=== PATIENT | female | born 2000 | race Caucasian/White ===

== ENCOUNTER 2021-12-21 10:20 | Observation (INO) ==
[2021-12-21] MEDS ORDERED: SODIUM CHLORIDE 0.9% 1000ML 1,000 ML IV SCH (10:34)
[2021-12-21] MEDS ORDERED: ONDANSETRON INJ 2 MG/ML 2 ML VIAL IV STA (10:46)
[2021-12-21] MEDS ORDERED: fentaNYL citrate 100 MCG/2 ML VIAL IV STA (10:46)
--- NOTE | 2021-12-21 10:47 | Emergency Department Note ---
History of Present Illness General Chief complaint: Abdominal Pain Stated complaint: ABDOMINAL PAIN Time Seen by Provider: 12/21/21 10:28 History of Present Illness Maximum Pain Intensity: 9 Patient is a 21-year-old female with past medical history significant for depression and anxiety who returns the emergency department for worsening right upper quadrant abdominal pain, nausea and vomiting since earlier this week. She was seen and evaluated in the emergency department on 12/19, found to have an elevated white count and cholelithiasis. Admission for surgical intervention was offered to the patient, but she reported that she could not stay due to childcare issues. She subsequently was scheduled for surgery with Dr. Ruvalcaba this coming Friday, 12/24. She had a call with preop testing yesterday. She states she woke with severe 9/10 pain this morning with hot flashes and vomiting. She now feels that she cannot wait until surgical intervention is planned for Friday. She was told to come back if she is getting worse. She has been taking the Augmentin as prescribed. Last menstrual period was 11/24. Home Medications Medication Instructions Recorded Confirmed Type amoxicillin 875 mg-potassium 1 tab PO BID 7 days #14 tabs 12/19/21 12/19/21 Rx clavulanate 125 mg tablet hydroxyzine pamoate 25 mg capsule 25 mg PO Q6 PRN Anxiety 12/19/21 12/19/21 History (Vistaril) lamotrigine 25 mg tablet (Lamictal) 50 mg PO HS 12/19/21 12/19/21 History quetiapine 50 mg tablet (Seroquel) 50 mg PO HS 12/19/21 12/19/21 History Allergies Allergy/AdvReac Type Severity Reaction Status Date / Time red dye Allergy Intermediate "pronounced Verified 12/19/21 12:09 red mack" Past Med/Surg History Medical History Anxiety Bipolar disorder Cholelithiasis Depression History of kidney stones History of miscarriage Recent/within last couple months Iron deficiency anemia Left ovarian cyst Migraine Post traumatic stress disorder Surgical History History of tooth extraction Family History Other No family history of adverse response to anesthesia No pertinent family history No pertinent family history in first degree relatives Social History Smoking Status: Current every day smoker Tobacco Type: Cigarettes Cigarettes Per Day: 20 a day; Second Hand Exposure: No; Hx Alcohol Use: No Hx Substance Use: No Preferred Language: Romansh Communication Ability: Effective Visual Impairment: No Limitations Hearing Ability: Normal Fixed Interest Dealer Required: No Beliefs That Will Affect Care: None Current Living Situation: Parent and Family Current Living Situation Comment: Lives with mom and 2 sisters Feels Safe at Home: Yes Assistive Devices: Glasses Review of Systems A total of 10 systems reviewed and were otherwise negative Physical Exam Vital Signs Vital Signs - 24 hr 12/21/21 10:22 12/21/21 12:05 12/21/21 14:00 Temperature 36.6 C Temperature Source Temporal Artery Scan Pulse Rate 66 Pulse Rate [Radial] 55 L 57 L Pulse Rhythm [Radial] Regular Pulse Strength [Radial] Normal Respiratory Rate 18 17 18 Respiratory Effort / Characteristics Non-Labored Non-Labored Spontaneous Non-Labored Spontaneous Respiratory Depth Normal Normal Normal Respiratory Pattern Regular Regular Regular Blood Pressure 109/63 Blood Pressure [Right Arm] 101/46 L 104/55 L Blood Pressure Mean 78 Blood Pressure Mean [Right Arm] 64 71 Blood Pressure Position Sitting Blood Pressure Position [Right Arm] Lying Pulse Oximetry 98 99 97 Oxygen Delivery Method Room Air Room Air Room Air Sepsis Recent Fever Within 48 Hours No Sepsis New/Unexplained Change in Mental Status No Sepsis Action Taken by Nursing No Action Required 12/21/21 15:11 Temperature Temperature Source Pulse Rate Pulse Rate [Radial] 51 L Pulse Rhythm [Radial] Pulse Strength [Radial] Respiratory Rate 18 Respiratory Effort / Characteristics Non-Labored Respiratory Depth Normal Respiratory Pattern Blood Pressure Blood Pressure [Right Arm] 100/55 L Blood Pressure Mean Blood Pressure Mean [Right Arm] 70 Blood Pressure Position Blood Pressure Position [Right Arm] Pulse Oximetry 99 Oxygen Delivery Method Room Air Sepsis Recent Fever Within 48 Hours Sepsis New/Unexplained Change in Mental Status Sepsis Action Taken by Nursing CONSTITUTIONAL: Patient is a well-appearing 21-year-old female who is awake and alert and laying on the gurney. EYES: Pupils equal, round, reactive to light and accommodation. EOMs intact without nystagmus. Sclera are anicteric. ENT: Tympanic membranes intact, with normal landmarks. External canals are zander ar. Oral and nasopharynx are clear. Mucous membranes are moist, no lesions, tongue and gums appear normal. CARDIOVASCULAR: Regular rate and rhythm. Peripheral pulses easy to palpable. RESPIRATORY: Breath sounds equal and clear to auscultation. GI: Bowel sounds are present. Abdomen is soft, slightly distended, tender to percussion in the right upper quadrant and markedly tender to palpation with guarding in the right upper quadrant. MUSCULOSKELETAL: Full range of motion of extremities x 4 with good strength. No cyanosis, edema, joint tenderness or swelling. No deformity. INTEGUMENTARY: No lesions or rash, normal skin turgor. NEUROLOGICAL: Alert, oriented, and cooperative. Cranial nerves, sensation and strength grossly intact. Pupils round, equal, and react to light, EOMs are full. LYMPH: No lymphadenopathy. Course Course Patient was seen and assessed as above. Old records were reviewed. She returns the emergency department with ongoing right upper quadrant abdominal pain after being diagnosed earlier this week with symptomatic cholelithiasis. Surgery was strongly advised, but she had family issues that kept her from proceeding. She was scheduled for elective surgery this coming Sunday 12/24, but now states that she "cannot take the pain." Repeat laboratory studies and ultrasound were p erformed in the emergency department. CBC with differential, CMP, urinalysis and COVID test were collected. She was hydrated with normal saline solution and treated with Zofran and fentanyl IV. Repeat ultrasound was obtained. I did attempt to contact Dr. Ruvalcaba's service, as he previously had seen the patient. ED accredited legal secretary was able to speak with him. He is not personnel analyst for general surgery today, and advised that the patient should go to the unassigned general surgeon, if it is deemed that surgery is necessary. Laboratory studies note count of 10,800, left shift noted. No gross electrolyte abnormalities noted. Transaminases are not elevated. Lipase is within normal limits. Urine microscopy is without signs of infection. A preop COVID test is negative. Ultrasound notes cholelithiasis, mild gallbladder wall thickening and a positive sonographic Mendoza sign concerning for acute cholecystitis. Kandy Echevarria PA-C with general surgery contacted me regarding the patient. She was able to speak with Dr. Frankel, and the plan will be for surgical intervention tomorrow. Patient will be admitted to the surgical service. Please refer to admission H&P for further information. I did update the patient with the results of her tests, and she is aware of the plan for surgery carmen bolaños. She is otherwise resting comfortably and does not express any needs at this time. Administered Medications Discontinued Medications Fentanyl Citrate (Fentanyl Citrate 100 Mcg/2 Ml Vial) 50 mcg IV NOW STA Stop: 12/21/21 10:47 Last Admin: 12/21/21 11:30 Dose: 50 mcg Documented By: SILVANO Sodium Chloride (Nss 1000ml) 1,000 mls @ 999 mls/hr IV .Q1H1M MARTHA Stop: 12/21/21 11:34 Last Infusion: 12/21/21 13:18 Dose: 0 mls/hr Documented By: Admin: 12/21/21 11:30 Dose: 999 mls/hr Documented By: SILVANO Ondansetron HCl (Ondansetron Inj 2 Mg/Ml 2 Ml Vial) 4 mg IV NOW STA Stop: 12/21/21 10:47 Last Admin: 12/21/21 11:30 Dose: 4 mg Documented By: SILVANO Medical Decision Making Differential Diagnosis Differential diagnoses entertained included acute cholecystitis, symptomatic cholelithiasis, biliary colic, ascending cholangitis, pancreatitis, among others. Medical Records Attestation: I reviewed the patient's medical records. Home Medications Current Medication List: was personally reviewed by me Laboratory Data Attestation: I reviewed the patient's lab results. Result diagrams: 12/21/21 12:06 12/21/21 11:20 Lab Results 12/21/21 12/21/21 12/21/21 Range/Units 11:13 11:13 11:20 WBC (4.8-10.8) K/ul RBC (3.93-5.22) M/uL Hgb (12.0-16.0) g/dl Hct (34.1-44.9) % MCV (80.0-100.0) fL MCH (25.0-34.0) pg MCHC (32.0-36.0) g/dL RDW Std Deviation (36.4-46.3) fL RDW Coeff of Alecia (11.5-14.5) % Plt Count (130-400) K/uL MPV (9.4-12.3) fL Immature Gran % (Auto) % Neut % (Auto) % Lymph % (Auto) % [place] % (Auto) % Eos % (Auto) % Baso % (Auto) % Neut # (Auto) (1.4-6.5) K/uL Lymph # (Auto) (1.2-3.4) K/uL [place] # (Auto) (0.24-0.82) K/uL Eos # (Auto) (0-0.50) K/uL Baso # (Auto) (0-0.2) K/uL Immature Gran # (Auto) (0.00-0.02) K/uL Sodium 138 (136-145) mmol/L Potassium 3.9 (3.5-5.1) mmol/L Chloride 106 (98-107) mmol/L Carbon Dioxide 25 (21-32) mmol/L Anion Gap 7 (3-11) BUN 7 (6-23) mg/dl Creatinine 0.54 L (0.6-1.2) mg/dl Est Cr Clr Drug Dosing 147.7 ml/min Est GFR ( Amer) > 150.0 ml/min Est GFR (Non-Af Amer) 133.9 ml/min BUN/Creatinine Ratio 13.0 (10-20) Glucose 81 (70-99(Fasting)) mg/dl Calcium 9.1 (8.5-10.1) mg/dl Total Bilirubin 0.3 (0.2-1.0) mg/dl AST 13 (13-39) U/L ALT 11 (7-52) U/L Alkaline Phosphatase 65 (34-104) U/L Total Protein 7.4 (6.0-8.3) gm/dl Albumin 3.8 (3.4-5.0) gm/dl Globulin 3.6 (2.5-4.0) gm/dl Albumin/Globulin Ratio 1.1 (0.9-2) Lipase 10 L (11-82) U/L Urine Color Yellow Urine Appearance Clear (Clear) Urine pH 6.5 (4.5-7.5) Ur Specific [place] 1.005 (1.000-1.030) Urine Protein Negative (Negative) Urine Glucose (UA) Negative (Negative) Urine Ketones Negative (Negative) Urine Blood Negative (Negative) Urine Nitrite Negative (Negative) Urine Bilirubin Negative (Negative) Urine Urobilinogen Negative (Negative) Ur Leukocyte Esterase 1+ H (Negative) Urine WBC (Auto) 5-10 H (0-5) /hpf Urine RBC (Auto) 0-4 (0-4) /hpf U Hyaline Cast (Auto) 1-5 (0-5) /lpf U Epithel Cells (Auto) >30 H (0-5) /lpf Urine Bacteria (Auto) Negative (Negative) SARS-CoV-2, RNA, NAAT NEGATIVE (NEGATIVE) 12/21/21 Range/Units 12:06 WBC 10.87 H (4.8-10.8) K/ul RBC 4.04 (3.93-5.22) M/uL Hgb 10.4 L (12.0-16.0) g/dl Hct 33.1 L (34.1-44.9) % MCV 81.9 (80.0-100.0) fL MCH 25.7 (25.0-34.0) pg MCHC 31.4 L (32.0-36.0) g/dL RDW Std Deviation 43.7 (36.4-46.3) fL RDW Coeff of Alecia 14.5 (11.5-14.5) % Plt Count 327 (130-400) K/uL MPV 8.8 L (9.4-12.3) fL Immature Gran % (Auto) 0.3 % Neut % (Auto) 62.1 % Lymph % (Auto) 25.6 % [place] % (Auto) 3.7 % Eos % (Auto) 7.7 % Baso % (Auto) 0.6 % Neut # (Auto) 6.76 H (1.4-6.5) K/uL Lymph # (Auto) 2.78 (1.2-3.4) K/uL [place] # (Auto) 0.40 (0.24-0.82) K/uL Eos # (Auto) 0.84 H (0-0.50) K/uL Baso # (Auto) 0.06 (0-0.2) K/uL Immature Gran # (Auto) 0.03 H (0.00-0.02) K/uL Sodium (136-145) mmol/L Potassium (3.5-5.1) mmol/L Chloride (98-107) mmol/L Carbon Dioxide (21-32) mmol/L Anion Gap (3-11) BUN (6-23) mg/dl Creatinine (0.6-1.2) mg/dl Est Cr Clr Drug Dosing ml/min Est GFR ( Amer) ml/min Est GFR (Non-Af Amer) ml/min BUN/Creatinine Ratio (10-20) Glucose (70-99(Fasting)) mg/dl Calcium (8.5-10.1) mg/dl Total Bilirubin (0.2-1.0) mg/dl AST (13-39) U/L ALT (7-52) U/L Alkaline Phosphatase (34-104) U/L Total Protein (6.0-8.3) gm/dl Albumin (3.4-5.0) gm/dl Globulin (2.5-4.0) gm/dl Albumin/Globulin Ratio (0.9-2) Lipase (11-82) U/L Urine Color Urine Appearance (Clear) Urine pH (4.5-7.5) Ur Specific [place] (1.000-1.030) Urine Protein (Negative) Urine Glucose (UA) (Negative) Urine Ketones (Negative) Urine Blood (Negative) Urine Nitrite (Negative) Urine Bilirubin (Negative) Urine Urobilinogen (Negative) Ur Leukocyte Esterase (Negative) Urine WBC (Auto) (0-5) /hpf Urine RBC (Auto) (0-4) /hpf U Hyaline Cast (Auto) (0-5) /lpf U Epithel Cells (Auto) (0-5) /lpf Urine Bacteria (Auto) (Negative) SARS-CoV-2, RNA, NAAT (NEGATIVE) Imaging Data Attestation: I personally reviewed and interpreted this imaging study as follows: Radiologist's Impression: Gallbladder Ultrasound 12/21/21 10:33 US gallbladder CLINICAL HISTORY: Worsening right upper quadrant pain. COMPARISON STUDY: Right upper quadrant ultrasound December 19, 2021. FINDINGS: Liver is sonographically normal. There is no biliary ductal dilatation. Common bile duct measures 4 mm in caliber. Pancreas is unremarkable by sonography. Gallstones within the gallbladder are noted. Positive sonographic Mendoza's sign was elicited. There is mild gallbladder wall thickening. Gallbladder is mildly distended. There is no right hydronephrosis. IMPRESSION: 1. Cholelithiasis, mild gallbladder wall thickening and positive sonographic Mendoza sign. These findings favor acute cholecystitis. 2. No biliary ductal dilatation. ACT 112: Negative or not required by law. Electronically signed by: Jim Macdonald M.D. 12/21/2021 1:16 PM MDM Narrative See ED Course. Impression & Plan Acute cholecystitis Discharge Plan Visit Data Chief Complaint: Abdominal Pain Stated Complaint: ABDOMINAL PAIN ED Provider: Henry Barnes ED Midlevel Provider: Les Almodovar Discharge Problem: Acute cholecystitis Patient Disposition: Being Evaluated by Surgeon Forms Stand Alone Forms: [facility] Prescriptions Prescriptions: No Action lamotrigine [Lamictal] 25 mg Tablet 50 mg PO HS hydroxyzine pamoate [Vistaril] 25 mg Capsule 25 mg PO Q6 PRN (Reason: Anxiety) quetiapine [Seroquel] 50 mg Tablet 50 mg PO HS amoxicillin-pot clavulanate 875-125 mg tablet 1 tab PO BID 7 Days Qty: 14 0RF Referrals Referrals: PCP,NO [Primary Care Provider] -
[2021-12-21 11:36] LABS: Appearance Urine Clear (Clear); Bacteria Urine Automated Negative (Negative); Bilirubin Urine Negative (Negative); Blood Urine Negative (Negative); Color Urine Yellow; Epithelial Cell Urine Auto >30 /lpf (0-5); Glucose Urine UA Negative (Negative); Ketones Urine Negative (Negative); Leukocyte Esterase Urine 1+ (Negative); Nitrite Urine Negative (Negative); Protein Urine Negative (Negative); RBC Urine Automated 0-4 /hpf (0-4); Specific Gravity Urine 1.005 (1.000-1.030); Urobilinogen Urine Negative (Negative); pH Urine 6.5 (4.5-7.5)
[2021-12-21 11:54] LABS: Alanine Aminotransferase 11 U/L (7-52); Albumin Globulin Ratio 1.1 (0.9-2); Albumin Level 3.8 gm/dl (3.4-5.0); Alkaline Phosphatase 65 U/L (34-104); Anion Gap 7 (3-11); Aspartate Aminotransferase 13 U/L (13-39); Bilirubin,Total 0.3 mg/dl (0.2-1.0); Blood Urea Nitrogen 7 mg/dl (6-23); Calcium 9.1 mg/dl (8.5-10.1); Carbon Dioxide 25 mmol/L (21-32); Chloride 106 mmol/L (98-107); Creatinine Clr Calc Pharmacy 147.7 ml/min; Est GFR (African American) > 150.0 ml/min; Est GFR (Non-African American) 133.9 ml/min; Globulin 3.6 gm/dl (2.5-4.0); Glucose 81 mg/dl (70-99(Fasting)); Lipase 10 U/L (11-82); Potassium 3.9 mmol/L (3.5-5.1); Sodium 138 mmol/L (136-145); Total Protein 7.4 gm/dl (6.0-8.3)
[2021-12-21 12:26] LABS: Basophils # (auto) 0.06 K/uL (0-0.2); Basophils % (auto) 0.6 %; Eosinophils # (auto) 0.84 K/uL (0-0.50); Eosinophils % (auto) 7.7 %; Hematocrit (blood only) 33.1 % (34.1-44.9); Hemoglobin 10.4 g/dl (12.0-16.0); Immature Granulocytes # (auto) 0.03 K/uL (0.00-0.02); Immature Granulocytes % (auto) 0.3 %; Lymphocytes # (auto) 2.78 K/uL (1.2-3.4); Lymphocytes % (auto) 25.6 %; Mean Corpuscular Hemoglobin 25.7 pg (25.0-34.0); Mean Corpuscular Hgb Conc 31.4 g/dL (32.0-36.0); Mean Corpuscular Volume 81.9 fL (80.0-100.0); Mean Platelet Volume 8.8 fL (9.4-12.3); Monocytes % (auto) 3.7 %; Neutrophils # (auto) 6.76 K/uL (1.4-6.5); Neutrophils % (auto) 62.1 %; Platelet Count 327 K/uL (130-400); RDW Coefficient of Variation 14.5 % (11.5-14.5); RDW Standard Deviation 43.7 fL (36.4-46.3); Red Blood Count 4.04 M/uL (3.93-5.22); White Blood Count 10.87 K/ul (4.8-10.8)
--- NOTE | 2021-12-21 13:15 | History & Physical Report ---
Date of Service December 21, 2021 Assessment & Plan (1) Abdominal pain, acute: (2) Cholelithiasis: Plan 21 year-old female who was initially seen in ED on 12/19/21 for abdominal pain found to have symptomatic cholelithiasis and elevated wbc of 19k presents back to ED with continues constant RUQ abdominal pain with associated nausea and vomiting. Repeat labs show improvement of wbc to 10K. t. bili and lfts wnl. Repeat ultrasound report still pending. Exam with RUQ tenderness on deep palpation no guarding , rigidity, or rebound. Plan: Given patients constant pain since Friday, an elevated wbc at initial presentation , gallstones and sludge she meets criteria for cholecystectomy. Discussed laparoscopic cholecystectomy, risks of procedure and expected recovery time. Will schedule her for lap ashley tomorrow am with Dr. Frankel Continue IVF IV Zosyn Clear liquids and NPO after midnight COVID test already ordered and negative. Discussed patient with Dr. Frankel who agrees with above. Seen and agree. Acute cholecystitis will gegin IV abx and fluids. Lap ashley in AM, consent obtained. History of Present Illness Chief Complaint: RUQ abdominal pain, nausea and vomiting Primary Care Provider: NO PCP Rosita is a 21 year-old female who initially presented to ED on 12/19/2021 with abdominal pain and found to have symptomatic cholelithiasis. Her wbc was elevated at 19K on Friday and she was evaluated by Dr. Ruvalcaba who recommended surgery however she had to leave as she had childcare issues. She is scheduled for outpatient lap ashley by Dr. Ruvalcaba this coming Sunday 12/24 but states she is unable to wait that long. She has had constant pain since Friday with associated sweats, nausea and vomiting this morning. Pain was 9/10 upon presentation back to ED today. She has been taking Augmentin since Friday with no improvement of symptoms. She denies fever, chills, chest pain, shortness of breath, changes in bowel habits, blood in stools, difficulty urinating or blood in urine. No prior abdominal surgeries. ER work-up included repeat labs which showed improved wbc at 10.87K (compared to 19K on 12/19) CMP wnl. repeat Ultrasound is currently pending. Allergies Allergy/AdvReac Type Severity Reaction Status Date / Time red dye Allergy Intermediate "pronounced Verified 12/19/21 12:09 red mack" Home Medications Medication Instructions Recorded Confirmed Type amoxicillin 875 mg-potassium 1 tab PO BID 7 days #14 tabs 12/19/21 12/19/21 Rx clavulanate 125 mg tablet hydroxyzine pamoate 25 mg capsule 25 mg PO Q6 PRN Anxiety 12/19/21 12/19/21 History (Vistaril) lamotrigine 25 mg tablet (Lamictal) 50 mg PO HS 12/19/21 12/19/21 History quetiapine 50 mg tablet (Seroquel) 50 mg PO HS 12/19/21 12/19/21 History Past Med/Surg History Medical History Anxiety Bipolar disorder Cholelithiasis Depression History of kidney stones History of miscarriage Recent/within last couple months Iron deficiency anemia Left ovarian cyst Migraine Post traumatic stress disorder Surgical History History of tooth extraction Family History Other No family history of adverse response to anesthesia No pertinent family history No pertinent family history in first degree relatives Social History Smoking Status: Current every day smoker Tobacco Type: Cigarettes Cigarettes Per Day: 20 a day; Second Hand Exposure: No; Hx Alcohol Use: No Hx Substance Use: No Preferred Language: Telugu Communication Ability: Effective Visual Impairment: No Limitations Hearing Ability: Normal Director Of Patient Financial Services Required: No Beliefs That Will Affect Care: None Current Living Situation: Parent and Family Current Living Situation Comment: Lives with mom and 2 sisters Feels Safe at Home: Yes Assistive Devices: Glasses Review of Systems Review of Systems: All systems reviewed & are unremarkable except as noted in HPI & below Physical Exam Constitutional: WD/WN, vitals as above cooperative and comfortable; no acute distress and not ill appearing Neck: trachea midline, no thyromegaly Respiratory: normal respiratory effort, lungs clear to auscultation Cardiovascular: RRR, no murmur, no edema Gastrointestinal (Abdomen): Inspection/Auscultation: abdomen normal to inspection; abdomen not distended Percussion/Palpation: + abdomen tender (RUQ on deep palpation) and abdomen soft; no guarding and abdomen not rigid Skin: no rashes, warm and dry no jaundice Psychiatric: Orientation: alert and oriented x 3 Affect: + flat affect Results & Data Results & Data ([facility]) Vital Signs (Past 12 Hours) Vital Signs Temp Pulse Pulse Resp BP BP Pulse Ox 12/21/21 12:05 55 L 17 101/46 L 99 12/21/21 10:22 36.6 C 66 18 109/63 98 O2 Del Method 12/21/21 12:05 Room Air 12/21/21 10:22 Room Air Laboratory Results 12/21/21 12/21/21 12/21/21 Range/Units 12:06 11:25 11:20 WBC 10.87 H (4.8-10.8) K/ul RBC 4.04 (3.93-5.22) M/uL Hgb 10.4 L (12.0-16.0) g/dl Hct 33.1 L (34.1-44.9) % MCV 81.9 (80.0-100.0) fL MCH 25.7 (25.0-34.0) pg MCHC 31.4 L (32.0-36.0) g/dL RDW Std Deviation 43.7 (36.4-46.3) fL RDW Coeff of Alecia 14.5 (11.5-14.5) % Plt Count 327 (130-400) K/uL MPV 8.8 L (9.4-12.3) fL Immature Gran % (Auto) 0.3 % Neut % (Auto) 62.1 % Lymph % (Auto) 25.6 % [place] % (Auto) 3.7 % Eos % (Auto) 7.7 % Baso % (Auto) 0.6 % Neut # (Auto) 6.76 H (1.4-6.5) K/uL Lymph # (Auto) 2.78 (1.2-3.4) K/uL [place] # (Auto) 0.40 (0.24-0.82) K/uL Eos # (Auto) 0.84 H (0-0.50) K/uL Baso # (Auto) 0.06 (0-0.2) K/uL Immature Gran # (Auto) 0.03 H (0.00-0.02) K/uL Sodium 138 (136-145) mmol/L Potassium 3.9 (3.5-5.1) mmol/L Chloride 106 (98-107) mmol/L Carbon Dioxide 25 (21-32) mmol/L Anion Gap 7 (3-11) BUN 7 (6-23) mg/dl Creatinine 0.54 L (0.6-1.2) mg/dl Est Cr Clr Drug Dosing 147.7 ml/min Est GFR ( Amer) > 150.0 ml/min Est GFR (Non-Af Amer) 133.9 ml/min BUN/Creatinine Ratio 13.0 (10-20) Glucose 81 (70-99(Fasting)) mg/dl Calcium 9.1 (8.5-10.1) mg/dl Total Bilirubin 0.3 (0.2-1.0) mg/dl AST 13 (13-39) U/L ALT 11 (7-52) U/L Alkaline Phosphatase 65 (34-104) U/L Total Protein 7.4 (6.0-8.3) gm/dl Albumin 3.8 (3.4-5.0) gm/dl Globulin 3.6 (2.5-4.0) gm/dl Albumin/Globulin Ratio 1.1 (0.9-2) Lipase 10 L (11-82) U/L Urine Color Urine Appearance (Clear) Urine pH (4.5-7.5) Ur Specific [place] (1.000-1.030) Urine Protein (Negative) Urine Glucose (UA) (Negative) Urine Ketones (Negative) Urine Blood (Negative) Urine Nitrite (Negative) Urine Bilirubin (Negative) Urine Urobilinogen (Negative) Ur Leukocyte Esterase (Negative) Urine WBC (Auto) (0-5) /hpf Urine RBC (Auto) (0-4) /hpf U Hyaline Cast (Auto) (0-5) /lpf U Epithel Cells (Auto) (0-5) /lpf Urine Bacteria (Auto) (Negative) POC Ur Test Pending SARS-CoV-2, RNA, NAAT (NEGATIVE) 12/21/21 12/21/21 Range/Units 11:13 11:13 WBC (4.8-10.8) K/ul RBC (3.93-5.22) M/uL Hgb (12.0-16.0) g/dl Hct (34.1-44.9) % MCV (80.0-100.0) fL MCH (25.0-34.0) pg MCHC (32.0-36.0) g/dL RDW Std Deviation (36.4-46.3) fL RDW Coeff of Alecia (11.5-14.5) % Plt Count (130-400) K/uL MPV (9.4-12.3) fL Immature Gran % (Auto) % Neut % (Auto) % Lymph % (Auto) % [place] % (Auto) % Eos % (Auto) % Baso % (Auto) % Neut # (Auto) (1.4-6.5) K/uL Lymph # (Auto) (1.2-3.4) K/uL [place] # (Auto) (0.24-0.82) K/uL Eos # (Auto) (0-0.50) K/uL Baso # (Auto) (0-0.2) K/uL Immature Gran # (Auto) (0.00-0.02) K/uL Sodium (136-145) mmol/L Potassium (3.5-5.1) mmol/L Chloride (98-107) mmol/L Carbon Dioxide (21-32) mmol/L Anion Gap (3-11) BUN (6-23) mg/dl Creatinine (0.6-1.2) mg/dl Est Cr Clr Drug Dosing ml/min Est GFR ( Amer) ml/min Est GFR (Non-Af Amer) ml/min BUN/Creatinine Ratio (10-20) Glucose (70-99(Fasting)) mg/dl Calcium (8.5-10.1) mg/dl Total Bilirubin (0.2-1.0) mg/dl AST (13-39) U/L ALT (7-52) U/L Alkaline Phosphatase (34-104) U/L Total Protein (6.0-8.3) gm/dl Albumin (3.4-5.0) gm/dl Globulin (2.5-4.0) gm/dl Albumin/Globulin Ratio (0.9-2) Lipase (11-82) U/L Urine Color Yellow Urine Appearance Clear (Clear) Urine pH 6.5 (4.5-7.5) Ur Specific [place] 1.005 (1.000-1.030) Urine Protein Negative (Negative) Urine Glucose (UA) Negative (Negative) Urine Ketones Negative (Negative) Urine Blood Negative (Negative) Urine Nitrite Negative (Negative) Urine Bilirubin Negative (Negative) Urine Urobilinogen Negative (Negative) Ur Leukocyte Esterase 1+ H (Negative) Urine WBC (Auto) 5-10 H (0-5) /hpf Urine RBC (Auto) 0-4 (0-4) /hpf U Hyaline Cast (Auto) 1-5 (0-5) /lpf U Epithel Cells (Auto) >30 H (0-5) /lpf Urine Bacteria (Auto) Negative (Negative) POC Ur Test SARS-CoV-2, RNA, NAAT NEGATIVE (NEGATIVE) Code Status & VTE Plan VTE Prophylaxis Plan VTE Prophylaxis will be ordered: Yes
--- NOTE | 2021-12-21 13:18 | Ultrasound Report ---
US gallbladder CLINICAL HISTORY: Worsening right upper quadrant pain. COMPARISON STUDY: Right upper quadrant ultrasound December 19, 2021. FINDINGS: Liver is sonographically normal. There is no biliary ductal dilatation. Common bile duct me asures 4 mm in caliber. Pancreas is unremarkable by sonography. Gallstones within the gallbladder are noted. Positive sonographic Mendoza's sign was elicited. There is mild gallbladder wall thickening. G allbladder is mildly distended. There is no right hydronephrosis. IMPRESSION: 1. Cholelithiasis, mild gallbladder wall thickening and positive sonographic Mendoza sign. These findi ngs favor acute cholecystitis. 2. No biliary ductal dilatation. ACT 112: Negative or not required by law. Electronically signed by: Jim Macdonald M.D. 12/21/2021 1:16 PM
[2021-12-21 15:37] LABS: Pregnancy Test, Urine Negative (Negative)
[2021-12-21] MEDS ORDERED: LACTATED RINGER'S 1,000 ML IV SCH (16:09)
[2021-12-21] MEDS ORDERED: ONDANSETRON INJ 2 MG/ML 2 ML VIAL IV PRN (16:09)
[2021-12-21] MEDS ORDERED: MoRPHine SULFATE 4 MG/ML 1 ML CARP\\VIAL IV PRN (16:09)
[2021-12-21] MEDS ORDERED: PIPERACILLIN/TAZOBACTAM 3.375 GM in DEXTROSE 5% 100 ML IV ONE (16:20)
[2021-12-21] MEDS ORDERED: KETOROLAC 30 MG/ML VIAL IV STA (17:36)
[2021-12-21] MEDS ORDERED: oxyCODONE/ACETAMINOPHEN 5mg/325mg TAB PO STA (17:39)
[2021-12-21] MEDS: KETOROLAC 30 MG/ML VIAL IV SCH (17:55)
[2021-12-21] MEDS ORDERED: oxyCODONE/ACETAMINOPHEN 5mg/325mg TAB PO ONE (18:00)
[2021-12-21] MEDS: MoRPHine SULFATE 2 MG/ML CARP IV PRN ×2 (18:59→21:31)
[2021-12-21] MEDS: SODIUM CHLORIDE 0.9% 1000ML 1,000 ML IV SCH (19:01)
[2021-12-21] MEDS: PIPERACILLIN/TAZOBACTAM 3.375 GM in DEXTROSE 5% 100 ML IV SCH (21:31)
[2021-12-22] MEDS: KETOROLAC 30 MG/ML VIAL IV SCH ×5 (01:05→22:49)
[2021-12-22] MEDS: SODIUM CHLORIDE 0.9% 1000ML 1,000 ML IV SCH ×3 (03:55→23:14)
[2021-12-22] MEDS: PIPERACILLIN/TAZOBACTAM 3.375 GM in DEXTROSE 5% 100 ML IV SCH ×3 (06:13→22:49)
[2021-12-22] MEDS: MoRPHine SULFATE 2 MG/ML CARP IV PRN ×3 (06:17→20:23)
[2021-12-22] MEDS ORDERED: GLYCOPYRROLATE 0.2 MG/ML VIAL ONE (07:21)
[2021-12-22] MEDS ORDERED: NEOSTIGMINE METHYLSULFATE 1 MG/ML 10ML VIAL ONE (07:21)
[2021-12-22] MEDS ORDERED: PROPOFOL IV EMULSION 10 MG/ML 20 ML VIAL IV ONE (07:21)
[2021-12-22] MEDS ORDERED: DEXAMETHASONE SOD INJ 4 MG/ML VIAL ONE (07:21)
[2021-12-22] MEDS ORDERED: MIDAZOLAM HCL 1 MG/ML 2ML VIAL ONE (07:21)
[2021-12-22] MEDS ORDERED: ONDANSETRON INJ 2 MG/ML 2 ML VIAL ONE (07:21)
[2021-12-22] MEDS ORDERED: fentaNYL citrate 100 MCG/2 ML VIAL ONE ×3 (07:21→09:02)
[2021-12-22] MEDS ORDERED: ATROPINE SULFATE 0.1 MG/ML 10ML SYR IV PRN (07:32)
[2021-12-22] MEDS ORDERED: ePHEDrine sulfate 50 MG/ML AMP IV PRN (07:32)
[2021-12-22] MEDS ORDERED: ONDANSETRON INJ 2 MG/ML 2 ML VIAL IV PRN (07:32)
--- NOTE | 2021-12-22 07:32 | Anesthesiology Consultation ---
Date of Service December 22, 2021 Assessment & Plan (1) Encounter for pre-operative examination: Chart Review Chart Review: Acceptable Risk for Surgery and Patient NOT seen in Pre Admission Testing Consults Requested none History Surgery Operation Date: 12/22/21 07:30 Proposed Procedures p Laparoscopic Cholecystectomy - Dewayne Frankel MD Height/Weight Height: 5 ft 2 in Weight: 68 kg Allergies Allergy/AdvReac Type Severity Reaction Status Date / Time red dye Allergy Intermediate "pronounced Verified 12/21/21 16:06 red mack" Medications Home Medications Medication Instructions Recorded Confirmed Last Taken amoxicillin 875 mg-potassium 1 tab PO BID 7 days #14 tabs 12/19/21 12/21/21 Unknown clavulanate 125 mg tablet hydroxyzine pamoate 25 mg capsule 25 mg PO Q6 PRN Anxiety 12/19/21 12/21/21 Unknown (Vistaril) lamotrigine 25 mg tablet (Lamictal) 50 mg PO HS 12/19/21 12/21/21 Unknown quetiapine 50 mg tablet (Seroquel) 50 mg PO HS 12/19/21 12/21/21 Unknown Active Medications Generic Name Dose Route Start Last Admin Trade Name Freq PRN Reason Stop Dose Admin Piperacillin Sod/Tazobactam 115 mls @ 28.75 mls/hr 12/21/21 22:00 12/22/21 06:13 Sod 3.375 gm/ Dextrose IV 12/31/21 21:59 28.8 mls/hr Q8H MARTHA Administration Protocol Sodium Chloride 1,000 mls @ 100 mls/hr 12/21/21 18:30 12/22/21 03:55 Nss 1000ml IV 01/20/22 18:29 100 mls/hr .Q10H MARTHA Administration Ketorolac Tromethamine 30 mg 12/21/21 18:00 12/22/21 06:13 Ketorolac 30 Mg/Ml Vial IV 12/26/21 17:59 30 mg Q6H MARTHA Administration Morphine Sulfate 2 mg 12/21/21 16:09 12/22/21 06:17 Morphine Sulfate 2 Mg/Ml Carp IV 01/04/22 16:08 2 mg Q3H PRN Administration Pain (1,2,3,4,5) & Pre PT Morphine Sulfate 4 mg 12/21/21 16:09 12/21/21 16:52 Morphine Sulfate 4 Mg/Ml 1 Ml Carp\\Vial IV 01/04/22 16:08 4 mg Q3H PRN Administration Pain (6,7,8,9,10) Ondansetron HCl 4 mg 12/21/21 16:09 12/21/21 21:37 Ondansetron Inj 2 Mg/Ml 2 Ml Vial IV 01/20/22 16:08 4 mg Q6H PRN Administration Nausea and vomiting Past Medical History Medical History Anxiety Bipolar disorder Cholelithiasis Depression History of kidney stones History of miscarriage Recent/within last couple months Iron deficiency anemia Left ovarian cyst Migraine Post traumatic stress disorder Past Family History Family History Other No family history of adverse response to anesthesia No pertinent family history No pertinent family history in first degree relatives Past Surgical History Surgical History History of tooth extraction Social History Smoking Status: Current every day smoker tobacco type: cigarettes Smoking cigarettes per day: 20 a day Do You Dip or Chew Tobacco: No Hx Alcohol Use: No Hx Substance Use: No substance use type: does not use Physical Exam Vital Signs Last Vital Signs Temp 98.1 F 12/22/21 06:58 Pulse 50 L 12/22/21 06:58 Resp 16 12/22/21 06:58 BP 101/62 12/22/21 06:58 Pulse Ox 96 12/22/21 06:58 O2 Del Method 12/22/21 06:58 Testing Laboratory Results 12/21/21 12:06 12/21/21 11:20 Urine Color Yellow 12/21/21 11:13 Urine Appearance Clear (Clear) 12/21/21 11:13 Urine pH 6.5 (4.5-7.5) 12/21/21 11:13 Ur Specific [place] 1.005 (1.000-1.030) 12/21/21 11:13 Urine Protein Negative (Negative) 12/21/21 11:13 Urine Glucose (UA) Negative (Negative) 12/21/21 11:13 Urine Ketones Negative (Negative) 12/21/21 11:13 Urine Nitrite Negative (Negative) 12/21/21 11:13 Ur Leukocyte Esterase 1+ (Negative) H 12/21/21 11:13 Urine WBC (Auto) 5-10 /hpf (0-5) H 12/21/21 11:13 Urine RBC (Auto) 0-4 /hpf (0-4) 12/21/21 11:13 U Hyaline Cast (Auto) 1-5 /lpf (0-5) 12/21/21 11:13 U Epithel Cells (Auto) >30 /lpf (0-5) H 12/21/21 11:13 Urine Bacteria (Auto) Negative (Negative) 12/21/21 11:13 Urine Test Negative (Negative) 12/21/21 11:13 12/21/21 12/21/21 11:25 11:13 Urine Test Negative POC Ur Test Cancelled
--- NOTE | 2021-12-22 07:37 | History & Physical Bridge Note ---
Date of Service December 22, 2021 History & Physical Bridge Note I have examined the patient, reviewed the History & Physical and in the interval since the performance of the History & Physical I have noted the following changes of clinical significance: no changes noted
[2021-12-22] MEDS ORDERED: BUPIVACAINE/EPINEPHRINE 0.25% 1:200,000 30 ML VIAL ONE (07:38)
--- NOTE | 2021-12-22 08:41 | Post Operative Brief Note ---
Immediate Post Op Note v1 Date of Surgery December 22, 2021 Pre & Post Diagnosis Operation Date: 12/22/21 07:30 Pre-Op Diagnosis: Acute Cholecystitis Post-Op Diagnosis: Acute Cholecystitis I identified the patient and participated in the time-out.: Yes Procedure Operation Date: 12/22/21 07:30 Actual Procedures p Laparoscopic Cholecystectomy - Dewayne Frankel MD Surgeon Dewayne Frankel MD Metallography Teacher none Estimated Blood Loss 15 Findings Consistent with Post-Op Diagnosis
[2021-12-22] MEDS: fentaNYL citrate 100 MCG/2 ML VIAL IV PRN ×4 (09:03→09:20)
--- NOTE | 2021-12-22 10:10 | Operative Report (OR) ---
DATE OF PROCEDURE: 12/22/2021 PREOPERATIVE DIAGNOSIS: Acute cholecystitis. POSTOPERATIVE DIAGNOSIS: Acute calculous cholecystitis. PROCEDURES PERFORMED: Laparoscopic cholecystectomy. SURGEON: Dewayne Frankel MD. CIRCULATION SALES REPRESENTATIVE: None. ANESTHESIA: General endotracheal with 0.25% Marcaine with epinephrine local. ESTIMATED BLOOD LOSS: 15 mL. COMPLICATIONS: None. DRAINS: None. SPECIMENS: Gallbladder sent for pathologic evaluation. INDICATIONS: This is a 21-year-old female who has had recurrent bouts of biliary colic, was actually seen last week and scheduled an outpatient laparoscopic cholecystectomy. She came in yesterday comp laining of more severe pain and some subjective fevers. On exam, she had some right upper quadrant t enderness, all consistent with acute cholecystitis. She was admitted, placed on IV fluids, IV antibi otics and will be taken to the OR for laparoscopic cholecystectomy. We talked about the risk of an o pen procedure, common bile duct injury, retained common bile duct stone, postoperative bile leak, ble eding and infection. DESCRIPTION OF PROCEDURE: The patient was taken to the OR and underwent excellent general endotrache al anesthesia. Abdomen was prepped and draped in normal sterile fashion. Transverse supraumbilical incision was made. Dissection was taken down to identify her fascia. 0 Vicryl was placed in the yefri e of the midline and the midline was incised sharply. Tiarra clamp was used to poke through the perit oneum. A Agnieszka trocar was then inserted. Good pneumoperitoneum was achieved to 15 mmHg pressure. An 11 subxiphoid two 5 lateral ports were placed in the normal fashion. The patient was placed in he ad up and rolled to the left. Gallbladder was identified. It was acutely inflamed with edema in the mccall. It was not incredibly tense, but somewhat difficult to grasp. A fundus was grasped, retract ed superiorly. The neck was then grasped and retracted laterally. The edematous adhesions were take n down. The peritoneum was then scored and the cystic artery and cystic duct were identified and ske letonized. Medial and lateral window was created between the gallbladder and the gallbladder fossa s howing the critical view of two structures going straight to the gallbladder. Once this critical vie w was seen, two clips were placed proximally on the cystic artery, one distally and the cystic artery was transected. Three clips were placed distally on the cystic duct and one proximally on the cysti c duct and cystic duct was transected. Electrocautery hook was then used to remove the gallbladder f rom the gallbladder fossa. The gallbladder was brought out through an Endobag with a small amount of biliary spillage. There were no stones spilled. Gallbladder was brought out with an Endobag and se nt for pathologic evaluation. Pneumoperitoneum was reestablished. There were some small bleeders on Nelson's capsule and these were cauterized. Abdomen was irrigated out and suctioned to clear. The ports were removed and pneumoperitoneum was decompressed. A 0 Vicryl was used to close the fascial defect in the supraumbilical incision. 0.25% Marcaine with epinephrine was used to create a local fi eld block in the fascia of the skin. Interrupted Vicryls were used to close the skin. Steri-Strips and benzoin were used for assistance. Sterile dressings were applied. The patient tolerated the pro cedure without complications and was sent to the postoperative recovery for a period of observation a nd then be sent to the floor for the rest of her care. Job ID: [id number]
[2021-12-22] MEDS: oxyCODONE/ACETAMINOPHEN 5mg/325mg TAB PO PRN ×3 (14:36→22:49)
[2021-12-23] MEDS: KETOROLAC 30 MG/ML VIAL IV SCH (06:11)
[2021-12-23] MEDS: PIPERACILLIN/TAZOBACTAM 3.375 GM in DEXTROSE 5% 100 ML IV SCH (06:11)
[2021-12-23] MEDS: oxyCODONE/ACETAMINOPHEN 5mg/325mg TAB PO PRN (08:50)
[2021-12-23] MEDS: SODIUM CHLORIDE 0.9% 1000ML 1,000 ML IV SCH (09:16)
--- NOTE | 2021-12-23 09:16 | Surgery Progress Note ---
Date of Service December 23, 2021 Assessment & Plan (1) Acute cholecystitis: Plan: discharge Present on Admission?: Yes Admission and Anticipated Discharge Date Admission Date: December 21, 2021 Subjective doing well no issues Review of Systems Constitutional: no fever and no chills Respiratory: no dyspnea Cardiovascular: no chest pain Gastrointestinal: no abdominal pain, no nausea and no vomiting Genitourinary: no dysuria Physical Exam Respiratory: normal respiratory effort, lungs clear to auscultation Cardiovascular: RRR, no murmur, no edema Gastrointestinal (Abdomen): Inspection/Auscultation: abdomen normal to inspection and + abdominal surgical incision; abdomen not distended Percussion/Palpation: + abdomen tender and abdomen soft; no guarding and abdomen not rigid Results & Data ([facility]) Vital Signs (Past 12 Hours) Vital Signs Temp Pulse Resp BP Pulse Ox O2 Del Method 12/23/21 07:46 36.7 C 51 L 16 99/60 L 98 12/23/21 02:29 36.8 C 48 L 16 97/60 L 97 Room Air 12/23/21 00:18 37.0 C 59 L 18 98/54 L 98 Room Air
--- NOTE | 2021-12-23 10:53 | Discharge Summary (DS) ---
DATE OF ADMISSION: 12/21/2021. DATE OF DISCHARGE: 12/23/2021. DIAGNOSIS: Acute cholecystitis. ATTENDING PHYSICIAN: Dewayne Frankel MD PROCEDURE PERFORMED: Laparoscopic cholecystectomy. HISTORY OF PRESENT ILLNESS: This is a 21-year-old female admitted through the Emergency Department with acute right upper quadrant abdominal pain. An ultrasound showed signs consistent with acute cholecystitis. She was admitted, placed on IV fluids and IV antibiotics. Will plan on doing laparoscopic cholecystectomy. HOSPITAL COURSE: The patient was same day admission and was admitted through the ED, taken to the floor, placed on IV fluids, IV antibiotics. Was taken to the OR the next morning and underwent uncomplicated laparoscopic cholecystectomy. She had an acute cholecystitis with edema and signs of early infection. She was continued overnight on IV fluids, IV antibiotics, and IV pain control. She tolerated this well. Was tolerating diet, doing well, and discharged on postoperative day #1. DISCHARGE MEDICATIONS: Percocet 1 tablet p.o. q. 6 hours, Augmentin 1 tablet p.o. b.i.d., Vistaril 25 mg p.o. q. 6 hours p.r.n., Lamictal 50 mg p.o. at bedtime, Seroquel 50 mg p.o. at bedtime. DIET: Regular as tolerated. ACTIVITY: No strenuous activity for two weeks. FOLLOWUP: In my office in two weeks. Job ID: [id number] MTDD
== END 2021-12-23 12:27 | disposition home or self-care (01) ==
LOC: ED 10:20 → 3N 10:20
DX: Z79.899 Other long term (current) drug therapy; R10.9 Unspecified abdominal pain; K80.12 Calculus of gallbladder with acute and chronic cholecystitis without obstruction; F17.210 Nicotine dependence, cigarettes, uncomplicated